=== PATIENT | female | born 2000 | race Caucasian/White ===

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

== ENCOUNTER 2020-04-05 11:40 | Emergency (ER) | payer MEDICAID ==
[2020-04-05 12:14] VITALS: BP 114/71; PULSE 79
--- NOTE | 2020-04-05 12:34 | EDM.PDOC ---
ED HPI GENERAL MEDICAL PROBLEM - General Chief Complaint: Genitourinary Problem Stated Complaint: BLADDER INFECTION?? Time Seen by Provider: 04/05/20 12:25 Source of Information: Reports: Patient - History of Present Illness INITIAL COMMENTS - FREE TEXT/NARRATIVE: Zenobia is an alert 19 year old female whom appear uncomfortable due to lower abdominal discomfort. Zenobia reports 6 UTIs in the last 6 months. Zenobia has a newer sexual partner and has noticed increased irritation in her pelvis after sexual intercourse. Zenobia reports urinating after intercourse and taking lots of baths but never uses soap in bath water. Zenobia reports frequent UTIs as a child due to soap in bath water. Zenobia has had severe lower abdominal pain and attempted OTC self care treatments including cranberry juice, increased fluid take and AZO yesterday without resolution. Zenobia is concerned about UTI and possible hypersensitivity to fiances sperm causing frequent infections. Zenobia has never had a pelvic examination for further evaluation of her concerning symptoms over the last 6 months. Zenobia is worried about her ability to have children with current significant other. Zenobia and significant other have not been evaluated for STIs. - Related Data Allergies Allergy/AdvReac Type Severity Reaction Status Date / Time fentanyl Allergy Hallucinati Verified 04/05/20 12:07 ons Latex, Natural Rubber Allergy Itching Verified 04/05/20 12:07 Home Meds: Home Meds DULoxetine [Cymbalta] 30 mg PO DAILY 06/08/18 [History] Zolpidem [Ambien] 5 mg PO DAILY 12/29/19 [History] desog-e.estradioL/e.estradioL [Viorele 28 Day Tablet] 1 tab PO DAILY 12/29/19 [History] Doxycycline [Vibramycin] 100 mg PO BID 10 Days #20 cap 04/05/20 [Rx] Naproxen [Naprosyn] 500 mg PO Q8H PRN 20 Days #40 tab 04/05/20 [Rx] Past Medical History - Past Health History Medical/Surgical History: Denies Medical/Surgical History Gastrointestinal History: Reports: Gastritis 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 Musculoskeletal History: Reports: Other (See Below) Other Musculoskeletal History: DISLOCATED SHOULDER 04/02/18 Neurological History: Reports: Concussion Psychiatric History: Reports: Anxiety, Depression Other Psychiatric History: cutting 2 weeks ago. - Infectious Disease History Infectious Disease History: Reports: Chicken Pox - Past Surgical History Head Surgeries/Procedures: Reports: None GI Surgical History: Reports: EGD Dermatological Surgical History: Reports: None Social & Family History - Family History Family Medical History: Noncontributory - Tobacco Use Smoking Status *Q: Never Smoker - Caffeine Use Caffeine Use: Reports: Coffee, Energy Drinks, Soda ED ROS GENERAL - Review of Systems Review Of Systems: Comprehensive ROS is negative, except as noted in HPI. ED EXAM, RENAL/ - Physical Exam Exam: See Below Exam Limited By: No Limitations General Appearance: Alert, WD/WN, Moderate Distress (sitting with her legs curled into her abdomen for pain control) Ears: Hearing Grossly Normal Nose: Normal Inspection Throat/Mouth: Normal Voice, No Airway Compromise Neck: Full Range of Motion Neurological: Alert, Oriented, CN II-XII Intact, Normal Cognition, No Motor/Sensory Deficits Psychiatric: Normal Affect, Normal Mood Skin Exam: Warm, Dry, Intact, Normal Color, No Rash Course - Vital Signs Last Recorded V/S: Last Vital Signs Temp 36.4 C 04/05/20 12:12 Pulse 79 04/05/20 12:12 Resp 14 04/05/20 12:12 BP 114/71 04/05/20 12:12 Pulse Ox 98 04/05/20 12:12 - Orders/Labs/Meds Orders: Active Orders 24 hr Category Date Time Status Pelvic Exam, Set Up [RC] ASDIRECTED Care 04/05/20 12:34 Active Peripheral IV Care [RC] . DIRECTED Care 04/05/20 13:42 Active Pelvis Non OB Comp [US] Stat Exams 04/05/20 13:43 Taken CHLAMYDIA/GC AMPLIFICATION Routine Lab 04/05/20 13:42 Received Sodium Chloride 0.9% [Saline Flush] Med 04/05/20 13:42 Active 10 ml FLUSH ASDIRECTED PRN Peripheral IV Insertion Adult [OM.PC] Urgent Oth 04/05/20 13:42 Ordered Medication Orders Sodium Chloride (Saline Flush) 10 ml FLUSH ASDIRECTED PRN PRN Reason: Keep Vein Open Last Admin: 04/05/20 13:53 Dose: 10 ml Documented by: KEYLA Labs: Laboratory Tests 04/05/20 04/05/20 04/05/20 Range/Units 12:08 12:08 15:39 WBC 6.1 (4.5-11.0) K/uL RBC 4.31 (3.30-5.50) M/uL Hgb 12.5 (12.0-15.0) g/dL Hct 35.8 L (36.0-48.0) % MCV 83 (80-98) fL MCH 29 (27-31) pg MCHC 35 (32-36) % Plt Count 317 (150-400) K/uL Neut % (Auto) 43 (36-66) % Lymph % (Auto) 43 (24-44) % [place] % (Auto) 8 H (2-6) % Eos % (Auto) 6 H (2-4) % Baso % (Auto) 1 (0-1) % C-Reactive Protein (0.0-0.3) mg/dL Urine Color [place] A (YELLOW) Urine Appearance Cloudy A (CLEAR) Urine RBC 0-5 (0-5) Urine WBC 0-5 (0-5) Ur Epithelial Cells Moderate Amorphous Sediment Not seen Urine Bacteria Not seen Urine Mucus Few Urinalysis Comment Urine HCG, Qual Negative 04/05/20 Range/Units 15:39 WBC (4.5-11.0) K/uL RBC (3.30-5.50) M/uL Hgb (12.0-15.0) g/dL Hct (36.0-48.0) % MCV (80-98) fL MCH (27-31) pg MCHC (32-36) % Plt Count (150-400) K/uL Neut % (Auto) (36-66) % Lymph % (Auto) (24-44) % [place] % (Auto) (2-6) % Eos % (Auto) (2-4) % Baso % (Auto) (0-1) % C-Reactive Protein < 0.05 (0.0-0.3) mg/dL Urine Color (YELLOW) Urine Appearance (CLEAR) Urine RBC (0-5) Urine WBC (0-5) Ur Epithelial Cells Amorphous Sediment Urine Bacteria Urine Mucus Urinalysis Comment Urine HCG, Qual Meds: Medications Generic Name Dose Route Start Last Admin Trade Name Freq PRN Reason Stop Dose Admin Sodium Chloride 10 ml 04/05/20 13:42 04/05/20 13:53 Saline Flush FLUSH 10 ml ASDIRECTED PRN Administration Keep Vein Open Discontinued Medications Generic Name Dose Route Start Last Admin Trade Name [place] PRN Reason Stop Dose Admin Azithromycin 2,000 mg 04/05/20 14:07 04/05/20 14:35 Zithromax PO 04/05/20 14:08 2,000 mg ONETIME ONE Administration Doxycycline Hyclate Confirm 04/05/20 14:15 04/05/20 14:38 Vibramycin Administered 04/05/20 14:16 Not Given Dose 200 mg .ROUTE .STK-MED ONE Doxycycline Hyclate 200 mg/ 250 mls @ 165 mls/hr 04/05/20 14:06 04/05/20 14:35 Sodium Chloride IV 04/05/20 15:36 165 mls/hr ONETIME ONE Administration Ketorolac Tromethamine 30 mg 04/05/20 13:42 04/05/20 13:53 Toradol IVPUSH 04/05/20 13:43 30 mg ONETIME ONE Administration Morphine Sulfate 4 mg 04/05/20 13:42 04/05/20 13:53 Morphine IVPUSH 04/05/20 13:43 4 mg ONETIME ONE Administration Ondansetron HCl 4 mg 04/05/20 14:08 04/05/20 14:38 Zofran IVPUSH 04/05/20 14:09 4 mg ONETIME ONE Administration - Re-Assessments/Exams Free Text/Narrative Re-Assessment/Exam: Pelvic examination completed. Zenobia has significant cervical motion tenderness and uterine discomfort with examination. Confirm concern for endometritis/PID. Zenobia is offered pelvic US for evaluation of right adnexal discomfort to ensure no signs of TOA. IV access, Morphine, Toradol given or pain conctrol before US. PO Fluids to attempt transabdominal first then transvaginal if needed. 04/05/20 14:04 Departure - Departure Time of Disposition: 16:28 Disposition: Home, Self-Care 01 Clinical Impression: Endometritis - Discharge Information Prescriptions: Naproxen [Naprosyn] 500 mg PO Q8H PRN 20 Days #40 tab PRN Reason: Inflammation Doxycycline [Vibramycin] 100 mg PO BID 10 Days #20 cap Instructions: Pelvic Inflammatory Disease, Endometritis Referrals: PCP,None [Primary Care Provider] - Forms: ED Department Discharge Additional Instructions: 1. Doxycycline 100mg every am and pm x 10 days. 2. Naproxen 500mg every 8-12 hours x 5 days with food then as needed for cramping and pain. 3. Tylenol 500-1000mg every 6 hours for mild to moderate pain. 4. Increase fluid intake. 5. Call PCP for recheck in 2 weeks to ensure resolved, sooner if symptoms worsen or new concerns. Sepsis Event Note (ED) - Evaluation Sepsis Screening Result: No Definite Risk - Focused Exam Vital Signs: Vital Signs Temp Pulse Resp BP Pulse Ox 04/05/20 12:12 36.4 C 79 14 114/71 98 - My Orders Last 24 Hours: My Active Orders 04/05/20 12:34 Pelvic Exam, Set Up [RC] ASDIRECTED 04/05/20 13:42 Peripheral IV Care [RC] . DIRECTED CHLAMYDIA/GC AMPLIFICATION Routine Sodium Chloride 0.9% [Saline Flush] 10 ml FLUSH ASDIRECTED PRN Peripheral IV Insertion Adult [OM.PC] Urgent 04/05/20 13:43 Pelvis Non OB Comp [US] Stat - Assessment/Plan Last 24 Hours: My Active Orders 04/05/20 12:34 Pelvic Exam, Set Up [RC] ASDIRECTED 04/05/20 13:42 Peripheral IV Care [RC] . DIRECTED CHLAMYDIA/GC AMPLIFICATION Routine Sodium Chloride 0.9% [Saline Flush] 10 ml FLUSH ASDIRECTED PRN Peripheral IV Insertion Adult [OM.PC] Urgent 04/05/20 13:43 Pelvis Non OB Comp [US] Stat
[2020-04-05] MEDS ORDERED: Morphine 4 MG/ML Syringe IVPUSH ONE (13:42)
[2020-04-05] MEDS ORDERED: Sodium Chloride 0.9% 10 ML Syringe FLUSH PRN (13:42)
[2020-04-05] MEDS ORDERED: Ketorolac 30 MG/ML SDV IVPUSH ONE (13:42)
[2020-04-05] MEDS ORDERED: Doxycycline 200 MG in Sodium Chloride 0.9% 250 ML IV ONE (14:06)
[2020-04-05] MEDS ORDERED: Azithromycin 250 MG Tab PO ONE (14:07)
[2020-04-05] MEDS ORDERED: Ondansetron 4 MG/2 ML SDV IVPUSH ONE (14:08)
[2020-04-05] MEDS ORDERED: Doxycycline 100 MG Vial ONE (14:15)
--- NOTE | 2020-04-07 10:00 | US ---
Pelvis Non OB Comp CLINICAL HISTORY: Endometritis FINDINGS: Real-time transabdominal images were obtained through the pelvis. Uterus measures 7.2 x 4.7 x 2.6 cm. There is a uniform myometrial echotexture. The endometrial stripe measures 4.5 mm Right ovary measures 3.7 x 2.3 x 1.3 cm. There is normal flow. Left ovary measures 2.9 x 2.2 x 1.3 cm. There is normal flow There is a small amount of free fluid in the cul-de-sac IMPRESSION: Small amount of free fluid in the cul-de-sac No mass identified
[2020-04-10 01:08] LABS: CHLAMYDIA TRACHOMATIS, NAA Positive (Negative); NEISSERIA GONORRHOEAE, NAA Negative (Negative)
== END 2020-04-05 16:55 | disposition home or self-care (01) ==
LOC: JP.ED 11:40
DX: N71.9 Inflammatory disease of uterus, unspecified (principal); F41.9 Anxiety disorder, unspecified; F32.9 Major depressive disorder, single episode, unspecified; Z79.899 Other long term (current) drug therapy; Z88.8 Allergy status to other drugs, medicaments and biological substances; Z91.040 Latex allergy status
CPT/HCPCS: 36415; 76856; 81001; 81025; 85025; 86140; 87210; 87491; 87591; 96365; 96375; 99284; A9270; J1885; J2270; J2405; J3490; J7050

== ENCOUNTER 2020-04-07 00:27 | Emergency (ER) | payer MEDICAID ==
[2020-04-07] MEDS ORDERED: Sodium Chloride 0.9% 10 ML Syringe FLUSH PRN (01:04)
[2020-04-07] MEDS ORDERED: Ondansetron 4 MG/2 ML SDV IVPUSH ONE (01:06)
[2020-04-07] MEDS ORDERED: HYDROmorphone 0.5 MG/0.5 ML Syringe IVPUSH ONE (01:06)
[2020-04-07] MEDS ORDERED: Sodium Chloride 0.9% 10 ML Syringe FLUSH ONE (01:13)
--- NOTE | 2020-04-07 01:14 | EDM.PDOC ---
ED HPI GENERAL MEDICAL PROBLEM - General Chief Complaint: Abdominal Pain Stated Complaint: LOW ABD PAIN Time Seen by Provider: 04/07/20 00:51 Source of Information: Reports: Patient, Family, RN Notes Reviewed History Limitations: Reports: No Limitations - History of Present Illness INITIAL COMMENTS - FREE TEXT/NARRATIVE: 19-year-old female presents emergency department today complaint of right lower quadrant pain, she initially had some pain a couple days ago it was more around the umbilicus presented to the emergency department evaluation at that time CBC unremarkable urinalysis unremarkable pelvic exam demonstrated cervical motion tenderness ultrasound transvaginal official report is pending but did not reveal any abnormality uterine. CRP at the time was on protective, beta-hCG was negative. She states the pain has returned it is now migrated to the right lower quadrant comes in waves there is no vaginal discharge no bleeding Right Lower Abdomen Pain Score (Numeric/FACES): 10 - Related Data Allergies Allergy/AdvReac Type Severity Reaction Status Date / Time fentanyl Allergy Hallucinati Verified 04/07/20 00:38 ons Latex, Natural Rubber Allergy Itching Verified 04/07/20 00:38 Home Meds: Home Meds DULoxetine [Cymbalta] 30 mg PO DAILY 06/08/18 [History] Zolpidem [Ambien] 5 mg PO DAILY 12/29/19 [History] desog-e.estradioL/e.estradioL [Viorele 28 Day Tablet] 1 tab PO DAILY 12/29/19 [History] Doxycycline [Vibramycin] 100 mg PO BID 10 Days #20 cap 04/05/20 [Rx] Naproxen [Naprosyn] 500 mg PO Q8H PRN 20 Days #40 tab 04/05/20 [Rx] Past Medical History Gastrointestinal History: Reports: Gastritis 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 Musculoskeletal History: Reports: Other (See Below) Other Musculoskeletal History: DISLOCATED SHOULDER 04/02/18 Neurological History: Reports: Concussion Psychiatric History: Reports: Anxiety, Depression Other Psychiatric History: hx of cutting - Infectious Disease History Infectious Disease History: Reports: Chicken Pox - Past Surgical History GI Surgical History: Reports: EGD Social & Family History - Family History Family Medical History: Noncontributory - Tobacco Use Smoking Status *Q: Never Smoker - Caffeine Use Caffeine Use: Reports: Coffee - Recreational Drug Use Recreational Drug Use: No ED ROS GENERAL - Review of Systems Review Of Systems: See Below Constitutional: Reports: No Symptoms HEENT: Reports: No Symptoms Respiratory: Reports: No Symptoms Cardiovascular: Reports: No Symptoms GI/Abdominal: Reports: Abdominal Pain, Flatus, Nausea, Vomiting : Reports: No Symptoms ED EXAM, GENERAL - Physical Exam Exam: See Below Exam Limited By: No Limitations General Appearance: Alert, Mild Distress Respiratory/Chest: No Respiratory Distress, Lungs Clear, Normal Breath Sounds, No Accessory Muscle Use, Chest Non-Tender Cardiovascular: Regular Rate, Rhythm, No Murmur GI/Abdominal: Normal Bowel Sounds, Soft, Tender (Right lower quadrant), Other (Psoas sign negative obturator sign positive heeltap positive) Course - Vital Signs Last Recorded V/S: Last Vital Signs Temp 97.2 F 04/07/20 00:35 Pulse 91 04/07/20 01:59 Resp 23 H 04/07/20 01:59 BP 106/66 04/07/20 01:59 Pulse Ox 99 04/07/20 01:59 - Orders/Labs/Meds Orders: Active Orders 24 hr Category Date Time Status Peripheral IV Care [RC] . DIRECTED Care 04/07/20 01:05 Active UA W/MICROSCOPIC [URIN] Urgent Lab 04/07/20 01:04 Ordered Iopamidol [Isovue-300 (61%)] Med 04/07/20 01:15 Active 86 ml IV . DIRECTED Lactated Ringers [Ringers, Lactated] 1,000 ml Med 04/07/20 01:15 Active IV ASDIRECTED Sodium Chloride 0.9% [Normal Saline] 80 ml Med 04/07/20 01:15 Active IV ASDIRECTED Sodium Chloride 0.9% [Saline Flush] Med 04/07/20 01:04 Active 10 ml FLUSH ASDIRECTED PRN Peripheral IV Insertion Adult [OM.PC] Urgent Oth 04/07/20 01:04 Ordered Medication Orders Lactated Ringer's (Ringers, Lactated) 1,000 mls @ 500 mls/hr IV ASDIRECTED JUAN Last Admin: 04/07/20 01:14 Dose: 500 mls/hr Documented by: CARLIN Sodium Chloride (Normal Saline) 80 mls @ 3.5 mls/sec IV ASDIRECTED JUAN Last Admin: 04/07/20 01:46 Dose: 3 mls/sec Documented by: ELINA Iopamidol (Isovue-300 (61%)) 86 ml IV . DIRECTED JUAN Last Admin: 04/07/20 01:45 Dose: 86 ml Documented by: ELINA Sodium Chloride (Saline Flush) 10 ml FLUSH ASDIRECTED PRN PRN Reason: Keep Vein Open Last Admin: 04/07/20 01:15 Dose: 10 ml Documented by: CARLIN Labs: Laboratory Tests 04/07/20 04/07/20 04/07/20 Range/Units 01:10 01:10 01:10 WBC 9.9 (4.5-11.0) K/uL RBC 4.77 (3.30-5.50) M/uL Hgb 13.5 (12.0-15.0) g/dL Hct 39.7 (36.0-48.0) % MCV 83 (80-98) fL MCH 28 (27-31) pg MCHC 34 (32-36) % Plt Count 313 (150-400) K/uL Neut % (Auto) 65 (36-66) % Lymph % (Auto) 22 L (24-44) % [place] % (Auto) 9 H (2-6) % Eos % (Auto) 4 (2-4) % Baso % (Auto) 0 (0-1) % Sodium 138 L (140-148) mmol/L Potassium 4.0 (3.6-5.2) mmol/L Chloride 102 (100-108) mmol/L Carbon Dioxide 26 (21-32) mmol/L Anion Gap 14.0 (5.0-14.0) mmol/L BUN 14 (7-18) mg/dL Creatinine 0.9 (0.6-1.0) mg/dL Est Cr Clr Drug Dosing 91.10 mL/min Estimated GFR (MDRD) > 60 (>60) Glucose 102 (74-106) mg/dL Lactic Acid 0.8 (0.4-2.0) mmol/L Calcium 9.1 (8.5-10.1) mg/dL Total Bilirubin 0.4 D (0.2-1.0) mg/dL AST 21 (15-37) U/L ALT 17 (12-78) U/L Alkaline Phosphatase 40 L (46-116) U/L Total Protein 8.0 (6.4-8.2) g/dL Albumin 4.0 (3.4-5.0) g/dL Globulin 4.0 H (2.3-3.5) g/dL Albumin/Globulin Ratio 1.0 L (1.2-2.2) Meds: Medications Generic Name Dose Route Start Last Admin Trade Name Freq PRN Reason Stop Dose Admin Lactated Ringer's 1,000 mls @ 500 mls/hr 04/07/20 01:15 04/07/20 01:14 Ringers, Lactated IV 500 mls/hr ASDIRECTED JUAN Administration Sodium Chloride 80 mls @ 3.5 mls/sec 04/07/20 01:15 04/07/20 01:46 Normal Saline IV 3 mls/sec ASDIRECTED JUAN Administration Iopamidol 86 ml 04/07/20 01:15 04/07/20 01:45 Isovue-300 (61%) IV 86 ml . DIRECTED JUAN Administration Sodium Chloride 10 ml 04/07/20 01:04 04/07/20 01:15 Saline Flush FLUSH 10 ml ASDIRECTED PRN Administration Keep Vein Open Discontinued Medications Generic Name Dose Route Start Last Admin Trade Name Freq PRN Reason Stop Dose Admin Hydromorphone HCl 0.5 mg 04/07/20 01:06 04/07/20 01:17 Dilaudid IVPUSH 04/07/20 01:07 0.5 mg ONETIME ONE Administration Lorazepam 1 mg 04/07/20 01:30 04/07/20 01:35 Ativan IVPUSH 04/07/20 01:31 0.5 mg ONETIME ONE Administration Ondansetron HCl 4 mg 04/07/20 01:06 04/07/20 01:15 Zofran IVPUSH 04/07/20 01:07 4 mg ONETIME ONE Administration Sodium Chloride 10 ml 04/07/20 01:13 04/07/20 01:46 Saline Flush FLUSH 04/07/20 01:14 10 ml ONETIME ONE Administration Departure - Departure Time of Disposition: 02:52 Disposition: Home, Self-Care 01 Condition: Fair Clinical Impression: Colitis Instructions: Colitis Referrals: PCP,None [Primary Care Provider] - Forms: ED Department Discharge Additional Instructions: Use hydrocodone as needed for pain control keep your follow-up appointments with GI as well as your colonoscopy, call or return to the emergency department worsening of symptoms Sepsis Event Note (ED) - Evaluation Sepsis Screening Result: No Definite Risk - Focused Exam Vital Signs: Vital Signs Temp Pulse Resp BP Pulse Ox 04/07/20 01:59 91 23 H 106/66 99 04/07/20 01:48 83 20 121/73 99 04/07/20 01:45 88 20 112/77 98 04/07/20 01:35 63 28 H 113/74 97 04/07/20 01:31 111 H 30 H 134/75 99 04/07/20 01:25 68 25 H 66/35 L 95 04/07/20 01:18 69 18 126/82 99 04/07/20 00:35 97.2 F 81 16 127/79 99 - My Orders Last 24 Hours: My Active Orders 04/07/20 01:04 UA W/MICROSCOPIC [URIN] Urgent Sodium Chloride 0.9% [Saline Flush] 10 ml FLUSH ASDIRECTED PRN Peripheral IV Insertion Adult [OM.PC] Urgent 04/07/20 01:05 Peripheral IV Care [RC] . DIRECTED 04/07/20 01:15 Iopamidol [Isovue-300 (61%)] 86 ml IV . DIRECTED Lactated Ringers [Ringers, Lactated] 1,000 ml IV ASDIRECTED Sodium Chloride 0.9% [Normal Saline] 80 ml IV ASDIRECTED - Assessment/Plan Last 24 Hours: My Active Orders 04/07/20 01:04 UA W/MICROSCOPIC [URIN] Urgent Sodium Chloride 0.9% [Saline Flush] 10 ml FLUSH ASDIRECTED PRN Peripheral IV Insertion Adult [OM.PC] Urgent 04/07/20 01:05 Peripheral IV Care [RC] . DIRECTED 04/07/20 01:15 Iopamidol [Isovue-300 (61%)] 86 ml IV . DIRECTED Lactated Ringers [Ringers, Lactated] 1,000 ml IV ASDIRECTED Sodium Chloride 0.9% [Normal Saline] 80 ml IV ASDIRECTED Plan: Assessment Acuity = acute Site and laterality = colitis Etiology = unknown probable underlying inflammatory bowel disease Manifestations = intermittent abdominal pain Location of injury = Home Lab values = CBC CMP unremarkable CT scan describes colitis above predominantly in the large colon Plan She is set up for colonoscopy in April and has visited with GI specialist for this further evaluation. Plan is to do hydrocodone 5/325 1 tab p.o. 3 times daily PRN total number 10 tablets keep her follow-up appointments with GI This note was dictated using [employer] voice recognition software please call with any questions on syntax or grammar.
[2020-04-07] MEDS ORDERED: Iopamidol 612 MG/ML 100 ML Bottle IV SCH (01:15)
[2020-04-07] MEDS ORDERED: Sodium Chloride 0.9% 80 ML IV SCH (01:15)
[2020-04-07] MEDS ORDERED: Lactated Ringers 1,000 ML IV SCH (01:15)
[2020-04-07] MEDS ORDERED: LORazepam 2 MG/ML SDV IVPUSH ONE (01:30)
[2020-04-07 02:02] VITALS: BP 106/66; PULSE 91
--- NOTE | 2020-04-07 02:37 | CRLCT ---
INDICATION: Right lower quadrant pain TECHNIQUE: CT abdomen and pelvis acquired with IV contrast. 86 mL of Isovue-300 administered. COMPARISON: None available FINDINGS: Lower chest: Unremarkable. Liver: Unremarkable. Spleen: Unremarkable. Pancreas: Unremarkable. Gallbladder and bile ducts: Unremarkable. Adrenal glands: Unremarkable. Kidneys: Unremarkable. GI tract: No bowel obstruction. Nonspecific fluid filled distal small bowel segments. A normal appendix. Wall thickening of the transverse and proximal to mid descending colon, and mild wall prominence and mucosal enhancement in the rectosigmoid colon, consistent with colitis. Vascular structures: Unremarkable. Lymph nodes: Unremarkable. Miscellaneous: No free air or significant free fluid. Pelvic Organs: Unremarkable. Bones: Mild osteopenia. IMPRESSION: Findings consistent with colitis. Correlate for infectious or inflammatory etiologies, including inflammatory bowel disease. Nonspecific fluid filled distal small bowel segments could represent mild enteritis. No evidence of appendicitis. Dictated by Rayray Zhao MD @ 04/07/2020 2:35:17 AM Please note that all CT scans at this facility use dose modulation, iterative reconstruction, and/or weight-based dosing when appropriate to reduce radiation dose to as low as reasonably achievable. Dictated by: Rayray Zhao MD @ 04/07/2020 02:35:23 (Electronically Signed)
== END 2020-04-07 03:25 | disposition home or self-care (01) ==
LOC: JP.ED 00:27
DX: K52.9 Noninfective gastroenteritis and colitis, unspecified (principal); F41.9 Anxiety disorder, unspecified; F32.9 Major depressive disorder, single episode, unspecified; Z91.040 Latex allergy status; Z88.4 Allergy status to anesthetic agent; Z79.899 Other long term (current) drug therapy
CPT/HCPCS: 36415; 74177; 80053; 83605; 85025; 96361; 96374; 96375; 99284; J1170; J2060; J2405; J7050; J7120; Q9967

== ENCOUNTER 2020-04-14 14:49 | Emergency (ER) | payer MEDICAID ==
[2020-04-14 15:08] VITALS: BP 112/78; PULSE 67
--- NOTE | 2020-04-14 15:36 | EDM.PDOC ---
ED HPI GENERAL MEDICAL PROBLEM - General Stated Complaint: RECTAL BLEEDING Time Seen by Provider: 04/14/20 15:36 Source of Information: Reports: Patient - History of Present Illness INITIAL COMMENTS - FREE TEXT/NARRATIVE: Zenobia present sot [place] ER for evaluation of rectal bleeding which started the last 2 days very small amount with slight perirectal discomfort. Zenobia reports bleeding is the amount of period spotting and started after passing a very firm vs small amount of stool yesterday. Zenobia has a long standing history of constipation with bowel movement occurring every 1-2 weeks with most recent bowel movement over 12-14 days ago. Zenobia was evaluated in the ER and diagnosed with STI and endometritis with positive Chlamydia which was treated with 2GM Azithromycin to cover Dionicio. and Doxycycline to treated uterine infections. Zenobia reports midline uterine pain has improved. Zenobia was evaluated in the ER 2 days later due to focal right lower abdominal pain and CT abd/pelvis was completed noting colitis without diarrhea or blood per stools. Zenobia was prescribed Orleans and stopped taking Naproxen for pain, but is nearly completed Doxycycline course. Zenobia has had intercourse with her significant other but was not aware of positive testing until today, due to mail went to mother's address. Abdomen Pain Score (Numeric/FACES): 6 - Related Data Allergies Allergy/AdvReac Type Severity Reaction Status Date / Time fentanyl Allergy Hallucinati Verified 04/14/20 16:02 ons Latex, Natural Rubber Allergy Itching Verified 04/14/20 16:02 Home Meds: Home Meds DULoxetine [Cymbalta] 30 mg PO DAILY 06/08/18 [History] Zolpidem [Ambien] 5 mg PO DAILY 12/29/19 [History] desog-e.estradioL/e.estradioL [Viorele 28 Day Tablet] 1 tab PO DAILY 12/29/19 [History] Doxycycline [Vibramycin] 100 mg PO BID 10 Days #20 cap 04/05/20 [Rx] Naproxen [Naprosyn] 500 mg PO Q8H PRN 20 Days #40 tab 04/05/20 [Rx] Glycerin [Sani-Supp Adult] 1 each RC DAILY PRN 30 Days #12 supp 04/14/20 [Rx] Past Medical History Gastrointestinal History: Reports: Gastritis [employer] 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 Musculoskeletal History: Reports: Other (See Below) Other Musculoskeletal History: DISLOCATED SHOULDER 04/02/18 Neurological History: Reports: Concussion Psychiatric History: Reports: Anxiety, Depression Other Psychiatric History: hx of cutting - Infectious Disease History Infectious Disease History: Reports: Chicken Pox - Past Surgical History GI Surgical History: Reports: EGD Social & Family History - Family History Family Medical History: Noncontributory - Caffeine Use Caffeine Use: Reports: Coffee ED ROS GENERAL - Review of Systems Review Of Systems: Comprehensive ROS is negative, except as noted in HPI. ED EXAM, GI/ABD - Physical Exam Exam: See Below Exam Limited By: No Limitations General Appearance: Alert, WD/WN, Anxious, Moderate Distress Eyes: Bilateral: Normal Appearance, EOMI Ears: Normal External Exam, Hearing Grossly Normal Nose: Normal Inspection Throat/Mouth: Normal Inspection, Normal Lips, Normal Voice, No Airway Compromise Head: Normocephalic Neck: Normal Inspection Respiratory/Chest: No Respiratory Distress, Lungs Clear, Normal Breath Sounds Cardiovascular: Normal Peripheral Pulses, Regular Rate, Rhythm GI/Abdominal Exam: Normal Bowel Sounds, Soft, Tender (right mid abdomen/across upper abdomen from liver to spleen/ and down to left mid abdomen ) (Female) Exam: Normal External Exam Rectal (Female) Exam: Normal Rectal Tone, Rectal Fissure, Tenderness (external rectum. Digital examination: normal tone no masses but unabel to palpation entire rectal vault due to external discomfort. ), Other (obvious small amount of blood in area). No: Fecal Impaction, Hemorrhoids, Mass Back Exam: Normal Inspection. No: CVA Tenderness (R), CVA Tenderness (L) Extremities: Normal Inspection, Normal Range of Motion Neurological: Alert, Oriented, CN II-XII Intact, Normal Cognition, Normal Gait, No Motor/Sensory Deficits Psychiatric: Normal Affect, Normal Mood, Tearful (when discussing prevsious test results. overwhelmed with medical information and repeat visit over the last 1- 2 weeks. ) Skin Exam: Warm, Dry, Intact, Normal Color, No Rash Course - Vital Signs Last Recorded V/S: Last Vital Signs Temp 36.6 C 04/14/20 16:02 Pulse 67 04/14/20 16:02 Resp 16 04/14/20 16:02 BP 112/78 04/14/20 16:02 Pulse Ox 98 04/14/20 16:02 - Orders/Labs/Meds Orders: Active Orders 24 hr Category Date Time Status Orthostatic Vital Signs [RC] ASDIRECTED Care 04/14/20 15:39 Active Peripheral IV Care [RC] . DIRECTED Care 04/14/20 15:40 Active Sodium Chloride 0.9% [Saline Flush] Med 04/14/20 15:39 Active 10 ml FLUSH ASDIRECTED PRN Peripheral IV Insertion Adult [OM.PC] Urgent Oth 04/14/20 15:39 Ordered Medication Orders Sodium Chloride (Saline Flush) 10 ml FLUSH ASDIRECTED PRN PRN Reason: Keep Vein Open Labs: Laboratory Tests 04/14/20 04/14/20 Range/Units 15:52 15:52 WBC 6.8 (4.5-11.0) K/uL RBC 4.64 (3.30-5.50) M/uL Hgb 13.1 (12.0-15.0) g/dL Hct 38.6 (36.0-48.0) % MCV 83 (80-98) fL MCH 28 (27-31) pg MCHC 34 (32-36) % Plt Count 333 (150-400) K/uL Neut % (Auto) 50 (36-66) % Lymph % (Auto) 39 (24-44) % [place] % (Auto) 8 H (2-6) % Eos % (Auto) 3 (2-4) % Baso % (Auto) 0 (0-1) % ESR 23 (0-25) mm/hr Sodium 138 L (140-148) mmol/L Potassium 4.0 (3.6-5.2) mmol/L Chloride 101 (100-108) mmol/L Carbon Dioxide 27 (21-32) mmol/L Anion Gap 14.0 (5.0-14.0) mmol/L BUN 8 (7-18) mg/dL Creatinine 0.8 (0.6-1.0) mg/dL Est Cr Clr Drug Dosing 102.85 mL/min Estimated GFR (MDRD) > 60 (>60) Glucose 86 (74-106) mg/dL Calcium 9.5 (8.5-10.1) mg/dL Total Bilirubin 0.5 (0.2-1.0) mg/dL AST 18 (15-37) U/L ALT 19 (12-78) U/L Alkaline Phosphatase 37 L (46-116) U/L C-Reactive Protein < 0.05 (0.0-0.3) mg/dL Total Protein 7.8 (6.4-8.2) g/dL Albumin 3.9 (3.4-5.0) g/dL Globulin 3.9 H (2.3-3.5) g/dL Albumin/Globulin Ratio 1.0 L (1.2-2.2) Meds: Medications Generic Name Dose Route Start Last Admin Trade Name Freq PRN Reason Stop Dose Admin Sodium Chloride 10 ml 04/14/20 15:39 Saline Flush FLUSH ASDIRECTED PRN Keep Vein Open - Re-Assessments/Exams Free Text/Narrative Re-Assessment/Exam: Reviewed pervious ER visits x 2 and blood tests, while waiting for nursing assessment. GC testing positive for Chlamydia: Plan to inform patient of test results. Reviewed previous visits and imaging results with patient. Orleans has worsened constipation concerns over mara last week. Zenobia was not aware of Chlamydia test results and has had intercourse with april. April has not been treated or tested. Zenobia is offered a repeat prescription of Azithromycin for herself and her significant other during ER visit. 04/14/20 16:05 Discussed aggressive bowel program (essential colonoscopy prep with no food, miralax, dulcolax and gatorade) to clear bowel and allow for restart of system w ith good hydration, fiber intake and exercise to see if bowels can become more regular. To be discussed with PCP this week before proceeding. 04/14/20 17:09 Departure - Departure Time of Disposition: 17:14 Disposition: Home, Self-Care 01 Clinical Impression: Rectal fissure, Chronic constipation, Colitis - Discharge Information Prescriptions: Glycerin [Sani-Supp Adult] 1 each RC DAILY PRN 30 Days #12 supp PRN Reason: Constipation Instructions: Rectal Bleeding, Constipation, Adult, Diet for Irritable Bowel Syndrome, Ulcerative Colitis, Adult, Colitis, Anal Fissure, Adult, Irritable Bowel Syndrome, Adult, Crohn's Disease, Colonoscopy, Adult Referrals: PCP,None [Primary Care Provider] - Additional Instructions: 1. Contact PCP at [facility] for follow-up this week or early next for follow-up after ER visits the last few weeks. 2. Hold Orleans only for severe pain as it cases increase in constipation concerns. 3. Complete antibiotic as directed. 4. Read information about colitis which may be due to chronic constipation, inflammatory bowel (Crohn's/Ulcerative colitis which must be diagnosed by Colonoscopy> 5. Discuss possible referral to GI for Colonoscopy and chronic constipation concerns which have not improved with increased hydration, increase fiber intake, exercises/walking, Coffee intake, senna/Colace (stool softener or l axatives). Consider probiotics while waiting for appointment with PCP regarding very infrequent bowel movements of one every 1-2 weeks. 6. Normal Bowel movement are 3 times per day to every three days. 7. Your rectal bleeding today id due to the small very firm bowel movements causing rectal fissure/tear which is why burning noted with examination. 8. Purchase tucks pads or witch denia pads at local pharmacy to help to local irritations. 9. Glycerine suppositories can be used every 3 days if not bowel movement to help lubricate the area and decrease risk of fissure or tear. 10. Prescription medication may be consider for chronic constipation but will need PCP to complete prior authorization or may need to be prescribed by GI specialist. 11. Discussed aggressive bowel program (essential colonoscopy prep with no food, miralax, dulcolax and gatorade) to clear bowel and allow for restart of system with good hydration, fiber intake and exercise to see if bowels can become more regular. To be discussed with PCP this week before proceeding. Sepsis Event Note (ED) - Focused Exam Vital Signs: Vital Signs Temp Pulse Resp BP Pulse Ox 04/14/20 16:02 36.6 C 67 16 112/78 98 04/14/20 15:07 36.6 C 67 16 112/78 98 - My Orders Last 24 Hours: My Active Orders 04/14/20 15:39 Orthostatic Vital Signs [RC] ASDIRECTED Sodium Chloride 0.9% [Saline Flush] 10 ml FLUSH ASDIRECTED PRN Peripheral IV Insertion Adult [OM.PC] Urgent 04/14/20 15:40 Peripheral IV Care [RC] . DIRECTED - Assessment/Plan Last 24 Hours: My Active Orders 04/14/20 15:39 Orthostatic Vital Signs [RC] ASDIRECTED Sodium Chloride 0.9% [Saline Flush] 10 ml FLUSH ASDIRECTED PRN Peripheral IV Insertion Adult [OM.PC] Urgent 04/14/20 15:40 Peripheral IV Care [RC] . DIRECTED
[2020-04-14] MEDS ORDERED: Sodium Chloride 0.9% 10 ML Syringe FLUSH PRN (15:39)
== END 2020-04-14 17:26 | disposition home or self-care (01) ==
LOC: JP.ED 14:49
DX: K59.09 Other constipation (principal); K52.9 Noninfective gastroenteritis and colitis, unspecified; K60.2 Anal fissure, unspecified; F32.9 Major depressive disorder, single episode, unspecified; Z88.4 Allergy status to anesthetic agent; Z91.040 Latex allergy status; Z79.899 Other long term (current) drug therapy
CPT/HCPCS: 36415; 80053; 85025; 85651; 86140; 99283

== ENCOUNTER 2020-07-19 00:13 | Emergency (ER) | payer MEDICAID ==
[2020-07-19 00:49] VITALS: BP 106/59; PULSE 80
[2020-07-19] MEDS ORDERED: Acetaminophen 500 MG Tab PO ONE (01:26)
--- NOTE | 2020-07-19 01:26 | EDM.PDOC ---
ED HPI GENERAL MEDICAL PROBLEM - General Chief Complaint: Abdominal Pain Stated Complaint: RIGHT SIDED ABDOMINAL PAIN Time Seen by Provider: 07/19/20 01:16 Source of Information: Reports: Patient, Old Records History Limitations: Reports: No Limitations - History of Present Illness INITIAL COMMENTS - FREE TEXT/NARRATIVE: 20 yo female presents with worsening of chronic R kavon-pelvic pain. Had a quant beta-HCG about 3 days ago that was 2. Is scheduled this next week for a pelvic US. Is not on any current contraceptives and is sexually active. Has had ongoing pain for months that has also resulted in endoscopy and colonoscopy that did not reveal any significant pathology. Did not take anything for pain before coming to the ER tonight. At one point when she had pain she had an US that did not show any pathology. Has not yet seen an WIRE CHARGER. No unusual vaginal discharge. Onset: Unknown/Unsure Duration: Week(s):, Waxing/Waning Location: Reports: Pelvis Quality: Reports: Sharp Severity: Moderate Improves with: Reports: None Worsens with: Reports: Other (pressing on area, vaginal intercourse) Context: Reports: Other (See HPI) Associated Symptoms: Reports: No Other Symptoms Treatments CUSTODY ASSISTANT: Reports: Other (see below) (none, doesn't have acetaminophen at home. ) Right Lower Abdominal Pain Score (Numeric/FACES): 9 - Related Data Allergies Allergy/AdvReac Type Severity Reaction Status Date / Time fentanyl Allergy Hallucinati Verified 07/19/20 00:40 ons Latex, Natural Rubber Allergy Itching Verified 07/19/20 00:40 Home Meds: Home Meds *Iron 1 tab PO DAILY 07/19/20 [History] Ascorbate Calcium [Vitamin C] 500 mg PO DAILY 07/19/20 [History] Ronaldo/Vit B12/Folic Acid/Vit B6 [Folic Acid-Vit B6-Vit B12 Tab] 1 tab PO DAILY 07/19/20 [History] Cholecalciferol (Vitamin D3) [Vitamin D3] 250 mcg PO DAILY 07/19/20 [History] Pnv No.95/Ferrous Fum/Folic AC [ Tablet] 1 tab PO DAILY 07/19/20 [History] Past Medical History Cardiovascular History: Reports: Arrhythmia Gastrointestinal History: Reports: Colon Polyp, Gastritis, Irritable Bowel Syndrome Genitourinary History: Reports: STD, UTI, Recurrent WIRE CHARGER History: Reports: Endometriosis, PID Other WIRE CHARGER History: LMP 1st or 2nd week in January. Musculoskeletal History: Reports: Other (See Below) Other Musculoskeletal History: DISLOCATED SHOULDER 04/02/18 Neurological History: Reports: Concussion Psychiatric History: Reports: Anxiety, Depression Other Psychiatric History: hx of cutting Hematologic History: Reports: Iron Deficiency - Infectious Disease History Infectious Disease History: Reports: Chicken Pox, Influenza, Novel Coronavirus - Past Surgical History Head Surgeries/Procedures: Reports: None GI Surgical History: Reports: Colonoscopy, EGD, Polypectomy Dermatological Surgical History: Reports: None Social & Family History - Family History Family Medical History: No Pertinent Family History - Tobacco Use Tobacco Use Status *Q: Never Tobacco User - Caffeine Use Caffeine Use: Reports: Coffee - Recreational Drug Use Recreational Drug Use: No ED ROS GENERAL - Review of Systems Review Of Systems: See Below Constitutional: Reports: No Symptoms. Denies: Fever, Chills HEENT: Reports: No Symptoms Respiratory: Reports: No Symptoms Cardiovascular: Reports: No Symptoms Endocrine: Reports: No Symptoms GI/Abdominal: Reports: No Symptoms : Reports: Pain (R kavon-pelvis), Other (dyspareunia ) Musculoskeletal: Reports: No Symptoms Skin: Reports: No Symptoms Neurological: Reports: No Symptoms Psychiatric: Reports: No Symptoms ED EXAM, RENAL/ - Physical Exam Exam: See Below Exam Limited By: No Limitations General Appearance: Alert, WD/WN, Mild Distress Eye Exam: Bilateral Eye: Normal Inspection Ears: Normal External Exam, Normal Canal, Hearing Grossly Normal Nose: Normal Inspection, No Blood Throat/Mouth: Normal Inspection, Normal Lips, Normal Voice, No Airway Compromise Head: Atraumatic, Normocephalic Neck: Normal Inspection Respiratory/Chest: No Respiratory Distress, Lungs Clear, Normal Breath Sounds, No Accessory Muscle Use Cardiovascular: Regular Rate, Rhythm, No Edema GI/Abdominal: Normal Bowel Sounds, Soft, Non-Tender, No Distention (Female) Exam: Other (pain to palpation of the R hemipelvis) Back Exam: Normal Inspection Extremities: Normal Inspection, Normal Range of Motion, Non-Tender, No Pedal Edema Neurological: Alert, Oriented, CN II-XII Intact, Normal Cognition, No Motor/Sensory Deficits Psychiatric: Normal Affect, Normal Mood Skin Exam: Warm, Dry, Intact, Normal Color, No Rash Course - Vital Signs Last Recorded V/S: Last Vital Signs Temp 36.2 C 07/19/20 00:48 Pulse 80 07/19/20 00:48 Resp 17 07/19/20 00:48 BP 106/59 L 07/19/20 00:48 Pulse Ox 99 07/19/20 00:48 - Orders/Labs/Meds Labs: Laboratory Tests 07/19/20 07/19/20 07/19/20 Range/Units 01:10 01:10 01:10 WBC 7.5 (4.5-11.0) K/uL RBC 4.35 (3.30-5.50) M/uL Hgb 12.2 (12.0-15.0) g/dL Hct 36.5 (36.0-48.0) % MCV 84 (80-98) fL MCH 28 (27-31) pg MCHC 33 (32-36) % Plt Count 325 (150-400) K/uL HCG, Quant 2 (0-6) mIU/mL Urine Color Yellow (YELLOW) Urine Appearance Clear (CLEAR) Urine pH 7.0 (5.0-8.0) Ur Specific [place] 1.020 (1.008-1.030) Urine Protein Negative (NEGATIVE) mg/dL Urine Glucose (UA) Negative (NEGATIVE) mg/dL Urine Ketones Negative (NEGATIVE) mg/dL Urine Occult Blood Negative (NEGATIVE) Urine Nitrite Negative (NEGATIVE) Urine Bilirubin Negative (NEGATIVE) Urine Urobilinogen 0.2 (0.2-1.0) EU/dL Ur Leukocyte Esterase Negative (NEGATIVE) Urine RBC 0-5 (0-5) Urine WBC 0-5 (0-5) Ur Epithelial Cells Rare Amorphous Sediment Not seen Urine Bacteria Rare Urine Mucus Not seen Meds: Medications Discontinued Medications Generic Name Dose Route Start Last Admin Trade Name Freq PRN Reason Stop Dose Admin Acetaminophen 1,000 mg 07/19/20 01:26 07/19/20 01:32 Tylenol Extra Strength PO 07/19/20 01:27 1,000 mg ONETIME ONE Administration Ketorolac Tromethamine 60 mg 07/19/20 01:55 Toradol IM 07/19/20 01:56 ONETIME ONE Departure - Departure Time of Disposition: 02:15 Disposition: Home, Self-Care 01 Condition: Fair Clinical Impression: Pelvic pain - Discharge Information *PRESCRIPTION DRUG MONITORING PROGRAM REVIEWED*: Not Applicable *COPY OF PRESCRIPTION DRUG MONITORING REPORT IN PATIENT BERENICE: Not Applicable Instructions: Pelvic Pain, Female, [id number] Referrals: PCP,None [Primary Care Provider] - Forms: ED Department Discharge Additional Instructions: Take acetaminophen up to 1000 mg every 6 hrs as needed for pain relief. Add Toradol 10 mg every 6 hrs as needed for added relief, next dose after 8 am. Talk with [facility] about getting a referral to an WIRE CHARGER doctor. Sepsis Event Note (ED) - Evaluation Sepsis Screening Result: No Definite Risk - Focused Exam Vital Signs: Vital Signs Temp Pulse Resp BP Pulse Ox 07/19/20 00:48 36.2 C 80 17 106/59 L 99 07/19/20 00:47 36.2 C 80 17 106/59 L 99
[2020-07-19] MEDS ORDERED: Ketorolac 60 MG/2 ML SDV IM ONE (01:55)
== END 2020-07-19 02:25 | disposition home or self-care (01) ==
LOC: JP.ED 00:13
DX: R10.2 Pelvic and perineal pain (principal); Z88.5 Allergy status to narcotic agent; Z91.040 Latex allergy status
CPT/HCPCS: 36415; 81001; 84702; 85027; 96372; 99284; A9270; J1885; 99283

== ENCOUNTER 2020-10-04 22:09 | Emergency (ER) | payer MEDICAID ==
[2020-10-04 22:33] VITALS: BP 110/70; PULSE 83
--- NOTE | 2020-10-04 22:48 | EDM.PDOC ---
ED HPI GENERAL MEDICAL PROBLEM - General Chief Complaint: UNDERWRITING SPECIALIST Problem Stated Complaint: 6 WKS PREG, BLEEDING Time Seen by Provider: 10/04/20 22:29 Source of Information: Reports: Patient, Family, RN Notes Reviewed History Limitations: Reports: No Limitations - History of Present Illness INITIAL COMMENTS - FREE TEXT/NARRATIVE: 20 yo female recent new ob appointment 6 w iup, she is Bpos blood type, had a large gush of blood in the shower tonight, no other symptoms - Related Data Allergies Allergy/AdvReac Type Severity Reaction Status Date / Time fentanyl Allergy Hallucinati Verified 07/19/20 00:40 ons Latex, Natural Rubber Allergy Itching Verified 07/19/20 00:40 Home Meds: Home Meds Ascorbate Calcium [Vitamin C] 500 mg PO DAILY 07/19/20 [History] Ronaldo/Vit B12/Folic Acid/Vit B6 [Folic Acid-Vit B6-Vit B12 Tab] 1 tab PO DAILY 07/19/20 [History] Cholecalciferol (Vitamin D3) [Vitamin D3] 250 mcg PO DAILY 07/19/20 [History] Ferrous Sulfate [Iron] 1 tab PO DAILY 07/19/20 [History] Pnv No.95/Ferrous Fum/Folic AC [ Tablet] 1 tab PO DAILY 07/19/20 [History] Past Medical History Cardiovascular History: Reports: Arrhythmia Gastrointestinal History: Reports: Colon Polyp, Gastritis, Irritable Bowel Syndrome Genitourinary History: Reports: STD, UTI, Recurrent UNDERWRITING SPECIALIST History: Reports: Endometriosis, PID Other UNDERWRITING SPECIALIST History: LMP 1st or 2nd week in January. Musculoskeletal History: Reports: Other (See Below) Other Musculoskeletal History: DISLOCATED SHOULDER 04/02/18 Neurological History: Reports: Concussion Psychiatric History: Reports: Anxiety, Depression Other Psychiatric History: hx of cutting Hematologic History: Reports: Iron Deficiency - Infectious Disease History Infectious Disease History: Reports: Chicken Pox, Influenza, Novel Coronavirus - Past Surgical History Head Surgeries/Procedures: Reports: None GI Surgical History: Reports: Colonoscopy, EGD, Polypectomy Dermatological Surgical History: Reports: None Social & Family History - Family History Family Medical History: No Pertinent Family History - Caffeine Use Caffeine Use: Reports: Coffee ED ROS GENERAL - Review of Systems Review Of Systems: See Below Constitutional: Reports: No Symptoms Respiratory: Reports: No Symptoms Cardiovascular: Reports: No Symptoms GI/Abdominal: Reports: No Symptoms : Reports: Irregular Menses ED EXAM - Physical Exam Exam: See Below Text/Narrative:: bed side US no FHT Exam Limited By: No Limitations General Appearance: Alert, Mild Distress Respiratory/Chest: No Respiratory Distress GI/Abdominal Exam: Soft, Non-Tender Course - Vital Signs Last Recorded V/S: Last Vital Signs Temp 98.8 F 10/04/20 23:45 Pulse 83 10/04/20 23:45 Resp 20 10/04/20 23:45 BP 110/70 10/04/20 23:45 Pulse Ox 99 10/04/20 23:45 - Orders/Labs/Meds Orders: Active Orders 24 hr Category Date Time Status OB Transvaginal [US] Stat Exams 10/04/20 22:41 Ordered Labs: Laboratory Tests 10/04/20 10/04/20 Range/Units 22:55 22:55 Hgb 12.3 (12.0-15.0) g/dL HCG, Quant 407 H (0-6) mIU/mL Departure - Departure Time of Disposition: 00:03 Disposition: Home, Self-Care 01 Condition: Fair Clinical Impression: Spontaneous miscarriage - Discharge Information Instructions: Miscarriage, [id number] Referrals: PCP,None [Primary Care Provider] - Forms: ED Department Discharge Additional Instructions: Please follow-up with your UNDERWRITING SPECIALIST for further evaluation, call or return to the emergency department worsening of symptoms Sepsis Event Note (ED) - Focused Exam Vital Signs: Vital Signs Temp Pulse Resp BP Pulse Ox 10/04/20 23:45 98.8 F 83 20 110/70 99 10/04/20 22:25 98.8 F 83 20 110/70 99 - My Orders Last 24 Hours: My Active Orders 10/04/20 22:41 OB Transvaginal [US] Stat - Assessment/Plan Last 24 Hours: My Active Orders 10/04/20 22:41 OB Transvaginal [US] Stat Plan: Assessment Acuity = acute Site and laterality = spontaneous miscarriage Etiology = unknown Manifestations = none Location of injury = Home Lab values = hemoglobin 12.9 beta-hCG extremely low at 407 and consistent with 6 weeks intrauterine Plan Transvaginal ultrasound did reveal no cardiac activity consistent with my bedside ultrasound I informed her and her significant other of the results they are going to follow-up with their primary UNDERWRITING SPECIALIST for further evaluation as needed This note was dictated using [employer] voice recognition software please call with any questions on syntax or grammar.
--- NOTE | 2020-10-06 10:05 | US ---
OB Transvaginal CLINICAL HISTORY: 6 week gestation FINDINGS: Uterus measures 6. 4.4 x 5.7 cm. Endometrium is thickened at 1.5 cm. No fluid collections are identified in the region of the. No gestational sac is identified. Whole or heart activity No adnexal masses or abnormal fluid collections are seen IMPRESSION: Endometrial thickening with no gestational sac or pole identified Correlate with beta hCG levels
== END 2020-10-05 00:10 | disposition home or self-care (01) ==
LOC: JP.ED 22:09
DX: O03.9 Complete or unspecified spontaneous abortion without complication (principal); D50.9 Iron deficiency anemia, unspecified; Z86.16 Personal history of COVID-19; Z88.4 Allergy status to anesthetic agent; Z91.040 Latex allergy status; Z79.899 Other long term (current) drug therapy
CPT/HCPCS: 36415; 76817; 76817-26; 84702; 85018; 99283; 99284-25

== ENCOUNTER 2021-01-12 22:26 | Emergency (ER) | payer MEDICAID ==
[2021-01-12 22:45] VITALS: BP 119/76; PULSE 81
--- NOTE | 2021-01-12 23:47 | EDM.PDOC ---
ED HPI GENERAL MEDICAL PROBLEM - General Chief Complaint: Genitourinary Problem Stated Complaint: PAIN URINATING AND BACK PAIN Time Seen by Provider: 01/12/21 22:51 Source of Information: Reports: Patient History Limitations: Reports: No Limitations - History of Present Illness INITIAL COMMENTS - FREE TEXT/NARRATIVE: chief complaint: bladder infection This is a 20 year old female present to the ER for bladder infection. She reports this evening at work she developed urinary frequency, pain and low back pain. Reports has frequent bladder infections Denies fever, chills, nausea, vomiting or diarrhea. Denies - currently menses Onset: Today Duration: Hour(s):, Getting Worse Location: Reports: Pelvis, Radiates to (low back) Quality: Reports: Ache, Same as Previous Episode Severity: Moderate Improves with: Reports: None Worsens with: Reports: None Context: Reports: Other (history of chronic UTI) Associated Symptoms: Reports: No Other Symptoms Back Pain Score (Numeric/FACES): 5 - Related Data Allergies Allergy/AdvReac Type Severity Reaction Status Date / Time fentanyl Allergy Hallucinati Verified 07/19/20 00:40 ons gluten Allergy Abdominal Verified 01/12/21 22:48 Pain Latex, Natural Rubber Allergy Itching Verified 07/19/20 00:40 Home Meds: Home Meds Ascorbate Calcium [Vitamin C] 500 mg PO DAILY 07/19/20 [History] Ronaldo/Vit B12/Folic Acid/Vit B6 [Folic Acid-Vit B6-Vit B12 Tab] 1 tab PO DAILY 07/19/20 [History] Cholecalciferol (Vitamin D3) [Vitamin D3] 250 mcg PO DAILY 07/19/20 [History] Ferrous Sulfate [Iron] 1 tab PO DAILY 07/19/20 [History] Pnv No.95/Ferrous Fum/Folic AC [ Tablet] 1 tab PO DAILY 07/19/20 [History] Dextroamphetamine Sulfate [Zenzedi] 1 tab PO DAILY 01/12/21 [History] Zolpidem Tartrate 1 tab PO BEDTIME 01/12/21 [History] Past Medical History HEENT History: Reports: Impaired Vision Cardiovascular History: Reports: Arrhythmia Gastrointestinal History: Reports: Colon Polyp, Gastritis, Irritable Bowel Syndrome Genitourinary History: Reports: STD, UTI, Recurrent X RAY CONSULTANT History: Reports: Endometriosis, PID, Other X RAY CONSULTANT History: LMP 1st day was 01/08/2021 Musculoskeletal History: Reports: Other (See Below) Other Musculoskeletal History: DISLOCATED SHOULDER 04/02/18 Neurological History: Reports: Concussion Psychiatric History: Reports: Anxiety, Depression Other Psychiatric History: hx of cutting Endocrine/Metabolic History: Reports: Hyperthyroidism Hematologic History: Reports: Iron Deficiency - Infectious Disease History Infectious Disease History: Reports: Chicken Pox, Influenza, Novel Coronavirus - Past Surgical History Head Surgeries/Procedures: Reports: None GI Surgical History: Reports: Colonoscopy, EGD, Polypectomy Dermatological Surgical History: Reports: None Social & Family History - Family History Family Medical History: No Pertinent Family History - Tobacco Use Tobacco Use Status *Q: Never Tobacco User - Caffeine Use Caffeine Use: Reports: Coffee - Recreational Drug Use Recreational Drug Use: No - Living Situation & Occupation 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) ED ROS GENERAL - Review of Systems Review Of Systems: See Below Constitutional: Reports: Other (urinary tract symptoms) HEENT: Reports: No Symptoms Respiratory: Reports: No Symptoms Cardiovascular: Reports: No Symptoms Endocrine: Reports: No Symptoms GI/Abdominal: Reports: Abdominal Pain : Reports: Dysuria, Flank Pain, Frequency, Urgency Musculoskeletal: Reports: No Symptoms Skin: Reports: No Symptoms Neurological: Reports: No Symptoms Psychiatric: Reports: No Symptoms Hematologic/Lymphatic: Reports: No Symptoms Immunologic: Reports: No Symptoms ED EXAM, GI/ABD - Physical Exam Exam: See Below Exam Limited By: No Limitations General Appearance: Alert, WD/WN, No Apparent Distress, Other (neat and well groomed, pleasant young adult) Eyes: Bilateral: Normal Appearance, EOMI Ears: Normal External Exam Head: Atraumatic, Normocephalic Neck: Normal Inspection, Supple, Non-Tender, Full Range of Motion Respiratory/Chest: No Respiratory Distress, Lungs Clear, Normal Breath Sounds, No Accessory Muscle Use, Chest Non-Tender Cardiovascular: Normal Peripheral Pulses, Regular Rate, Rhythm, No Edema, No Gallop, No JVD, No Murmur, No Rub GI/Abdominal Exam: Normal Bowel Sounds, Soft, No Organomegaly, No Distention, No Abnormal Bruit, No Mass, Pelvis Stable, Tender (mild pain with palpation of pelvis) (Female) Exam: Deferred Rectal (Female) Exam: Deferred Back Exam: CVA Tenderness (R), CVA Tenderness (L) Extremities: Normal Inspection, Normal Range of Motion, Non-Tender, Normal Capillary Refill, No Pedal Edema Neurological: Alert, Oriented, CN II-XII Intact, Normal Cognition, Normal Gait, Normal Reflexes, No Motor/Sensory Deficits Psychiatric: Normal Affect, Normal Mood Skin Exam: Warm, Dry, Intact, Normal Color, No Rash Lymphatic: No Adenopathy Course - Vital Signs Last Recorded V/S: Last Vital Signs Temp 97.8 F 01/12/21 22:46 Pulse 81 01/12/21 22:46 Resp 16 01/12/21 22:46 BP 119/76 01/12/21 22:46 Pulse Ox 99 01/12/21 22:46 - Orders/Labs/Meds Labs: Laboratory Tests 01/12/21 01/12/21 Range/Units 22:56 22:56 Urine Color Yellow (YELLOW) Urine Appearance Cloudy A (CLEAR) Urine pH 1.0 L (5.0-8.0) Ur Specific [place] 6.500 H (1.008-1.030) Urine Protein Negative (NEGATIVE) mg/dL Urine Glucose (UA) Normal (NEGATIVE) mg/dL Urine Ketones Negative (NEGATIVE) mg/dL Urine Occult Blood Moderate (NEGATIVE) Urine Nitrite Negative (NEGATIVE) Urine Bilirubin Negative (NEGATIVE) Urine Urobilinogen 0.2 (0.2-1.0) EU/dL Ur Leukocyte Esterase Small (NEGATIVE) Urine RBC 0-5 (0-5) Urine WBC 10-20 H (0-5) Ur Epithelial Cells Moderate Amorphous Sediment Not seen Urine Bacteria Moderate Urine Mucus Not seen Urine HCG, Qual Negative Departure - Departure Time of Disposition: 23:42 Disposition: Home, Self-Care 01 Condition: Good Clinical Impression: UTI, Urinary tract infectious disease - Discharge Information *PRESCRIPTION DRUG MONITORING PROGRAM REVIEWED*: Not Applicable *COPY OF PRESCRIPTION DRUG MONITORING REPORT IN PATIENT BERENICE: Not Applicable Instructions: Urinary Tract Infection, Adult, [id number] Referrals: PCP,None [Primary Care Provider] - Forms: ED Department Discharge, ED Return to Work/School Form Care Plan Goals: Urinary Tract Infection/ bladder infection -start tonight Keflex (Cephalexin) 500 mg by mouth two times a day for 7 days -start tonight Pyridium as directed for bladder pain -push fluids, rest, work slip for 3 days or until well -return to ER for any fever, chills, increased back pain, nausea, vomiting or any concerns. Sepsis Event Note (ED) - Evaluation Sepsis Screening Result: No Definite Risk - Focused Exam Vital Signs: Vital Signs Temp Pulse Resp BP Pulse Ox 01/12/21 22:46 97.8 F 81 16 119/76 99 01/12/21 22:43 97.8 F 81 16 119/76 99 - Problem List & Annotations (1) UTI, Urinary tract infectious disease SNOMED Code(s): 01258854 Code(s): N39.0 - URINARY TRACT INFECTION, SITE NOT SPECIFIED Status: Acute Priority: High - Problem List Review Problem List Initiated/Reviewed/Updated: Yes - Assessment/Plan Plan: Urinary Tract Infection/ bladder infection -start tonight Keflex (Cephalexin) 500 mg by mouth two times a day for 7 days -start tonight Pyridium as directed for bladder pain -push fluids, rest, work slip for 3 days or until well -return to ER for any fever, chills, increased back pain, nausea, vomiting or any concerns.
== END 2021-01-13 | disposition home or self-care (01) ==
LOC: JP.ED 22:26
DX: N39.0 Urinary tract infection, site not specified (principal); Z91.040 Latex allergy status; Z91.018 Allergy to other foods; Z88.8 Allergy status to other drugs, medicaments and biological substances
CPT/HCPCS: 81001; 81025; 99283

== ENCOUNTER 2021-04-12 12:32 | Emergency (ER) | payer MEDICAID ==
[2021-04-12 12:53] VITALS: BP 102/55; PULSE 81
--- NOTE | 2021-04-12 13:20 | EDM.PDOC ---
ED HPI GENERAL MEDICAL PROBLEM - General Chief Complaint: Genitourinary Problem Stated Complaint: POSSIBLE UTI AND BACK PAIN Time Seen by Provider: 04/12/21 13:15 Source of Information: Reports: Patient, Family, RN Notes Reviewed History Limitations: Reports: No Limitations - History of Present Illness INITIAL COMMENTS - FREE TEXT/NARRATIVE: 20-year-old female presents emergency department day complaint of frequency and dysuria low pelvic pain is all started today she is concerned she may have a urinary tract infection no fevers Pelvic Pain Score (Numeric/FACES): 7 - Related Data Allergies Allergy/AdvReac Type Severity Reaction Status Date / Time fentanyl Allergy Hallucinati Verified 04/12/21 13:13 ons gluten Allergy Abdominal Verified 04/12/21 13:13 Pain Latex, Natural Rubber Allergy Itching Verified 04/12/21 13:13 Home Meds: Home Meds Cholecalciferol (Vitamin D3) [Vitamin D3] 250 mcg PO DAILY 07/19/20 [History] Dextroamphetamine Sulfate [Zenzedi] 1 tab PO DAILY 01/12/21 [History] Zolpidem Tartrate 1 tab PO BEDTIME 01/12/21 [History] carBAMazepine [Carbamazepine] 200 mg PO BID 04/12/21 [History] Past Medical History HEENT History: Reports: Impaired Vision Cardiovascular History: Reports: Arrhythmia Gastrointestinal History: Reports: Colon Polyp, Gastritis, Irritable Bowel Syndrome Genitourinary History: Reports: STD, UTI, Recurrent 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 SANDING History: Reports: Endometriosis, PID, Other SUPERVISOR SANDING History: LMP 1st day was 01/08/2021 Musculoskeletal History: Reports: Other (See Below) Other Musculoskeletal History: DISLOCATED SHOULDER 04/02/18 Neurological History: Reports: Concussion Psychiatric History: Reports: Anxiety, Depression Other Psychiatric History: hx of cutting Endocrine/Metabolic History: Reports: Hyperthyroidism Hematologic History: Reports: Iron Deficiency - Infectious Disease History Infectious Disease History: Reports: Chicken Pox, Influenza, Novel Coronavirus - Past Surgical History Head Surgeries/Procedures: Reports: None GI Surgical History: Reports: Colonoscopy, EGD, Polypectomy Dermatological Surgical History: Reports: None Social & Family History - Family History Family Medical History: No Pertinent Family History - Caffeine Use Caffeine Use: Reports: Coffee - Living Situation & Occupation 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 Denies: Flank Pain ED EXAM, RENAL/ - Physical Exam Exam: See Below Exam Limited By: No Limitations General Appearance: Alert, WD/WN, No Apparent Distress Respiratory/Chest: No Respiratory Distress GI/Abdominal: Soft, Non-Tender Back Exam: No: CVA Tenderness (R), CVA Tenderness (L) Course - Vital Signs Last Recorded V/S: Last Vital Signs Temp 97.6 F 04/12/21 13:11 Pulse 81 04/12/21 13:11 Resp 16 04/12/21 13:11 BP 102/55 L 04/12/21 13:11 Pulse Ox 100 04/12/21 13:11 - Orders/Labs/Meds Orders: Active Orders 24 hr Category Date Time Status CULTURE URINE [RM] Urgent Lab 04/12/21 13:16 Ordered Labs: Laboratory Tests 04/12/21 Range/Units 12:52 Urine Color [place] A (YELLOW) Urine Appearance Cloudy A (CLEAR) Urine pH 7.0 (5.0-8.0) Ur Specific [place] 1.020 (1.008-1.030) Urine Protein (NEGATIVE) mg/dL Urine Glucose (UA) (NEGATIVE) mg/dL Urine Ketones (NEGATIVE) mg/dL Urine Occult Blood (NEGATIVE) Urine Nitrite (NEGATIVE) Urine Bilirubin (NEGATIVE) Urine Urobilinogen (0.2-1.0) EU/dL Ur Leukocyte Esterase (NEGATIVE) Urine RBC 5-10 H (0-5) Urine WBC 40-50 H (0-5) Ur Epithelial Cells Few Amorphous Sediment Not seen Urine Bacteria Many Urine Mucus Few Departure - Departure Time of Disposition: 13:19 Disposition: Home, Self-Care 01 Condition: Fair Clinical Impression: UTI, Urinary tract infectious disease - Discharge Information Instructions: Urinary Tract Infection, Adult, [id number] Referrals: PCP,None [Primary Care Provider] - Additional Instructions: Take full course of antibiotics, please followup with your primary care provider in 3-5 days if not better, please call return to the emergency department with worsening of symptoms. Sepsis Event Note (ED) - Focused Exam Vital Signs: Vital Signs Temp Pulse Resp BP Pulse Ox 04/12/21 13:11 97.6 F 81 16 102/55 L 100 04/12/21 12:52 97.6 F 81 16 102/55 L 100 - My Orders Last 24 Hours: My Active Orders 04/12/21 13:16 CULTURE URINE [RM] Urgent - Assessment/Plan Last 24 Hours: My Active Orders 04/12/21 13:16 CULTURE URINE [RM] Urgent Plan: Assessment Acuity = acute Site and laterality = urinary tract infection Etiology = bacterial cause Manifestations = dysuria Location of injury = Home Lab values = 40-50 WBCs consistent with pyuria, small amount of RBCs consistent with hematuria cultures pending Plan Elected to treat empirically Bactrim DS 1 tab p.o. twice daily x3 days follow-up primary care 3 to 5 days if not better This note was dictated using [employer] voice recognition software please call with any questions on syntax or grammar.
== END 2021-04-12 13:43 | disposition home or self-care (01) ==
LOC: JP.ED 12:32
DX: N39.0 Urinary tract infection, site not specified (principal); Z88.4 Allergy status to anesthetic agent; Z91.040 Latex allergy status; Z88.8 Allergy status to other drugs, medicaments and biological substances
CPT/HCPCS: 81001; 87086; 87088; 87186; 99284

== ENCOUNTER 2021-06-09 18:44 | Emergency (ER) | payer MEDICAID ==
[2021-06-09] MEDS ORDERED: Ondansetron 4 MG Tab.DIS PO ONE (18:54)
[2021-06-09 18:57] VITALS: BP 128/78; PULSE 99
[2021-06-09] MEDS ORDERED: Alum Hydrox/Mag Hydrox/Simeth 15 ML, Lidocaine 2% 15 ML PO ONE ×2 (19:26)
--- NOTE | 2021-06-09 19:33 | EDM.PDOC ---
ED HPI GENERAL MEDICAL PROBLEM - General Chief Complaint: Gastrointestinal Problem Stated Complaint: SHOULDER AND CHEST PAIN, THROWING UP WHEN EATING Time Seen by Provider: 06/09/21 19:15 Source of Information: Reports: Patient, Old Records, RN History Limitations: Reports: No Limitations - History of Present Illness INITIAL COMMENTS - FREE TEXT/NARRATIVE: 20 yo female presents with nausea, vomiting with eating today and epigastric burning. She has been on a PPI for 2 weeks. Has never had children. No blood in her emesis. Her mother had her GB out a couple yrs ago and is sure that these sx's are due to gallbladder. No fever. Concurrent with her epigastric pain being severe she will get intermittent sharp R shoulder pain. Feels different from the colitis she had once in the past. Also has a pHx of ectopic . Is having her menses currently. Is taking ibuprofen today for her menstrual pain, sx's preceded the first dose of the ibuprofen. Onset: Today, Gradual Onset Date: 06/09/21 Duration: Hour(s):, Waxing/Waning Location: Reports: Abdomen Quality: Reports: Burning Severity: Moderate Improves with: Reports: None Context: Reports: Other (unsure) Associated Symptoms: Reports: Nausea/Vomiting, Other (R shoulder pain). 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: Reports: Other (see below) (lemon juice and epsom salt) Middle Chest Pain Score (Numeric/FACES): 10 - Related Data Allergies Allergy/AdvReac Type Severity Reaction Status Date / Time fentanyl Allergy Hallucinati Verified 06/09/21 19:03 ons gluten Allergy Abdominal Verified 06/09/21 19:03 Pain Latex, Natural Rubber Allergy Itching Verified 06/09/21 19:03 Home Meds: Home Meds Cholecalciferol (Vitamin D3) [Vitamin D3] 250 mcg PO DAILY 07/19/20 [History] Dextroamphetamine Sulfate [Zenzedi] 1 tab PO DAILY 01/12/21 [History] Zolpidem Tartrate 1 tab PO BEDTIME 01/12/21 [History] carBAMazepine [Carbamazepine] 200 mg PO BID 04/12/21 [History] Omeprazole 1 cap PO DAILY 06/09/21 [History] QUEtiapine [SEROquel] 3 tab PO BEDTIME 06/09/21 [History] Past Medical History HEENT History: Reports: Impaired Vision Cardiovascular History: Reports: Arrhythmia Gastrointestinal History: Reports: Colon Polyp, Gastritis, Irritable Bowel Syndrome Genitourinary History: Reports: STD, UTI, Recurrent CARRIAGE SETTER History: Reports: Endometriosis, PID, Other CARRIAGE SETTER History: LMP day was 01/08/2021 Musculoskeletal History: Reports: Other (See Below) Other Musculoskeletal History: DISLOCATED SHOULDER 04/02/18 Neurological History: Reports: Concussion Psychiatric History: Reports: ADHD, Anxiety, Bipolar, Depression Other Psychiatric History: hx of cutting Endocrine/Metabolic History: Reports: Hyperthyroidism Hematologic History: Reports: Iron Deficiency - Infectious Disease History Infectious Disease History: Reports: Chicken Pox, Influenza, Novel Coronavirus - Past Surgical History Head Surgeries/Procedures: Reports: None GI Surgical History: Reports: Colonoscopy, EGD, Polypectomy Female Surgical History: Reports: Endometrial Ablation Other Female Surgeries/Procedures: tubal preg Dermatological Surgical History: Reports: None Social & Family History - Family History Family Medical History: No Pertinent Family History - Caffeine Use Caffeine Use: Reports: Coffee - Recreational Drug Use Recreational Drug Use: No - Living Situation & Occupation 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 Denies: Black Stool, Bloody Stool, Hematemesis, Hematochezia : Reports: Other (menses currently) Musculoskeletal: Reports: No Symptoms Skin: Reports: No Symptoms Neurological: Reports: No Symptoms Psychiatric: Reports: No Symptoms ED EXAM, GI/ABD - Physical Exam Exam: See Below Exam Limited By: No Limitations General Appearance: Alert, WD/WN, No Apparent Distress Eyes: Bilateral: Normal Appearance Ears: Normal External Exam, Normal Canal, Hearing Grossly Normal Nose: Normal Inspection, No Blood Throat/Mouth: Normal Inspection, Normal Lips, Normal Oropharynx, Normal Voice, No Airway Compromise Head: Atraumatic, Normocephalic Neck: Normal Inspection Respiratory/Chest: No Respiratory Distress, Lungs Clear, Normal Breath Sounds, No Accessory Muscle Use Cardiovascular: Regular Rate, Rhythm, No Edema GI/Abdominal Exam: Normal Bowel Sounds, Soft, Non-Tender, No Distention. No: Distended, Guarding, Rigid, Rebound, Tender Back Exam: Normal Inspection, CVA Tenderness (L). No: CVA Tenderness (R) Extremities: Normal Inspection Neurological: Alert, Oriented, CN II-XII Intact, Normal Cognition, No Motor/Sensory Deficits Psychiatric: Normal Affect, Normal Mood Skin Exam: Warm, Dry, Intact, Normal Color, No Rash Course - Vital Signs Last Recorded V/S: Last Vital Signs Temp 36.6 C 06/09/21 19:00 Pulse 99 06/09/21 19:00 Resp 18 06/09/21 19:00 BP 128/78 06/09/21 19:00 Pulse Ox 98 06/09/21 19:00 - Orders/Labs/Meds Orders: Active Orders 24 hr Category Date Time Status Abdomen Ltd [US] Stat Exams 06/09/21 19:25 Taken Labs: Laboratory Tests 06/09/21 06/09/21 06/09/21 Range/Units 19:36 19:36 20:51 WBC 5.7 (4.5-11.0) K/uL RBC 4.63 (3.30-5.50) M/uL Hgb 13.5 (12.0-15.0) g/dL Hct 38.6 (36.0-48.0) % MCV 83 (80-98) fL MCH 29 (27-31) pg MCHC 35 (32-36) % Plt Count 302 (150-400) K/uL Sodium 144 (140-148) mmol/L Potassium 4.2 (3.6-5.2) mmol/L Chloride 107 (100-108) mmol/L Carbon Dioxide 28 (21-32) mmol/L Anion Gap 8.8 (5.0-14.0) mmol/L BUN 9 (7-18) mg/dL Creatinine 0.7 (0.6-1.0) mg/dL Est Cr Clr Drug Dosing 110.50 mL/min Estimated GFR (MDRD) > 60 (>60) Glucose 88 (74-106) mg/dL Calcium 8.6 (8.5-10.1) mg/dL Total Bilirubin 0.2 D (0.2-1.0) mg/dL AST 10 L (15-37) U/L ALT 16 (12-78) U/L Alkaline Phosphatase 56 (46-116) U/L Total Protein 7.1 (6.4-8.2) g/dL Albumin 4.2 (3.4-5.0) g/dL Globulin 2.9 (2.3-3.5) g/dL Albumin/Globulin Ratio 1.4 (1.2-2.2) Lipase 121 (73-393) U/L Urine Color Yellow (YELLOW) Urine Appearance Slightly cloudy A (CLEAR) Urine pH 6.5 (5.0-8.0) Ur Specific [place] >= 1.030 (1.008-1.030) Urine Protein Negative (NEGATIVE) mg/dL Urine Glucose (UA) Negative (NEGATIVE) mg/dL Urine Ketones Trace H (NEGATIVE) mg/dL Urine Occult Blood Large H (NEGATIVE) Urine Nitrite Negative (NEGATIVE) Urine Bilirubin Negative (NEGATIVE) Urine Urobilinogen 0.2 (0.2-1.0) EU/dL Ur Leukocyte Esterase Negative (NEGATIVE) Urine RBC 10-20 H (0-5) Urine WBC 0-5 (0-5) Ur Epithelial Cells Occasional Amorphous Sediment Occasional Urine Bacteria Occasional Urine Mucus Few Meds: Medications Discontinued Medications Generic Name Dose Route Start Last Admin Trade Name Reynoldq PRN Reason Stop Dose Admin Hydrocodone Bitart/Acetaminophen 1 tab 06/09/21 21:06 06/09/21 21:10 Acetaminophen/Hydrocodone 325-5 Mg Tab PO 06/09/21 21:07 1 tab ONETIME ONE Administration Al Hydroxide/Mg Hydroxide 15 0 ml 06/09/21 19:26 06/09/21 19:33 ml/ Lidocaine HCl 15 ml PO 06/09/21 19:27 30 ml ONETIME ONE Administration Ondansetron HCl 4 mg 06/09/21 18:54 06/09/21 19:05 Ondansetron 4 Mg Tab.Dis PO 06/09/21 18:55 4 mg ONETIME ONE Administration - Radiology Interpretation Free Text/Narrative:: GB ultrasound-negative - Re-Assessments/Exams Free Text/Narrative Re-Assessment/Exam: 06/09/21 19:56 Had slight, transient relief from the GI cocktail. Departure - Departure Time of Disposition: 21:15 Disposition: Home, Self-Care 01 Condition: Fair Clinical Impression: Gastritis Qualifiers: Gastritis type: unspecified gastritis Chronicity: acute Gastritis bleeding: without bleeding Qualified Code(s): K29.00 - Acute gastritis without bleeding - Discharge Information *PRESCRIPTION DRUG MONITORING PROGRAM REVIEWED*: Not Applicable *COPY OF PRESCRIPTION DRUG MONITORING REPORT IN PATIENT BERENICE: Not Applicable Instructions: Gastritis, Adult, [id number] Referrals: PCP,None [Primary Care Provider] - Forms: ED Department Discharge Additional Instructions: Switch from ibuprofen to acetaminophen and take up to 1000 mg every 6 hrs as needed for pain relief. Continue your other medications. Take either Maalox or Peptobismol 30 ml after mealtime and bedtime for your epigastric pain. Drink mo re fluids than you have been today. Recheck in the clinic the end of the week, return for fever or black or bloody stools. Sepsis Event Note (ED) - Evaluation Sepsis Screening Result: No Definite Risk - Focused Exam Vital Signs: Vital Signs Temp Pulse Resp BP Pulse Ox 06/09/21 19:00 36.6 C 99 18 128/78 98 06/09/21 18:56 36.6 C 99 18 128/78 98 - My Orders Last 24 Hours: My Active Orders 06/09/21 19:25 Abdomen Ltd [US] Stat - Assessment/Plan Last 24 Hours: My Active Orders 06/09/21 19:25 Abdomen Ltd [US] Stat
[2021-06-09] MEDS ORDERED: Acetaminophen/HYDROcodone 325-5 MG Tab PO ONE (21:06)
--- NOTE | 2021-06-10 08:54 | US ---
Abdomen Ltd CLINICAL HISTORY: Epigastric pain COMPARISON: CT 2019. TECHNIQUE: Real-time images were obtained through the right upper quadrant. FINDINGS: The liver is free of mass or biliary dilatation. There is a homogeneous echotexture throughout. The gallbladder has a normal appearance. The common bile duct measures 3 mm. The pancreas is partially obscured. No mass is identified. The right kidney has a normal appearance. The IVC is normal. IMPRESSION: Essentially negative right upper quadrant ultrasound Pancreas is partially obscured
== END 2021-06-09 21:41 | disposition home or self-care (01) ==
LOC: JP.ED 18:44
DX: K29.00 Acute gastritis without bleeding (principal); Z88.4 Allergy status to anesthetic agent; Z91.048 Other nonmedicinal substance allergy status; Z91.040 Latex allergy status; Z79.899 Other long term (current) drug therapy
CPT/HCPCS: 36415; 76705; 80053; 81001; 81025; 83690; 85027; 99284; A9270